=== PATIENT | female | born 1975 | race Caucasian/White ===

== ENCOUNTER 2020-01-26 10:21 | Outpatient (CLI) | payer OTHER, MEDICAID ==
[2020-01-26 11:09] LABS: BASOPHILS # (AUTO) 0.04 x10^3/uL (0-0.1); BASOPHILS % (AUTO) 1 % (0-1); EOSINOPHILS # (AUTO) 0.11 x10^3/uL (0-0.4); EOSINOPHILS % (AUTO) 1 % (1-7); LYMPHOCYTES # (AUTO) 2.09 x10^3/uL (1-3.4); LYMPHOCYTES % (AUTO) 28 % (22-44); MD NO; MEAN CORPUSCULAR HEMOGLOBIN 31.4 pg (27.0-34.8); MEAN CORPUSCULAR HGB CONC 33.6 g/dL (32.4-35.8); MEAN PLATELET VOLUME 9.9 fL (7.4-10.4); MONOCYTES # (AUTO) 0.37 x10^3/uL (0.2-0.8); MONOCYTES % (AUTO) 5 % (2-9); NEUTROPHILS # (AUTO) 4.92 x10^3/uL (1.8-6.8); NEUTROPHILS % (AUTO) 65 % (42-75); PLATELET COUNT 205 x10^3/uL (130-400); RED BLOOD COUNT 4.98 x10^6/uL (3.82-5.3); RED CELL DISTRIBUTION WIDTH 13.3 % (9.6-15.2)
[2020-01-26 11:15] LABS: MICROSCOPIC NOT IND
[2020-01-26 11:18] LABS: INTERNATIONAL NORMALIZED RATIO 0.94 (0.93-1.1)
[2020-01-26 11:19] LABS: ANION GAP 5 mmol/L (5-15); CALCIUM 9.4 mg/dL (8.5-10.1); CHLORIDE 110 mmol/L (98-107); CREATININE 0.83 mg/dL (0.55-1.02)
[2020-01-26] MEDS ORDERED: LACT1CAP35 PO (11:51)
[2020-01-26] MEDS ORDERED: CALC200T3 PO (11:51)
[2020-01-26] MEDS ORDERED: ACET325T14 PO (11:51)
[2020-01-26] MEDS ORDERED: DICL100G29 TP (11:51)
[2020-01-26] MEDS ORDERED: CYCL-259 PO (11:51)
== END 2020-01-26 23:59 | disposition home or self-care (01) ==
LOC: STAR 10:21
PROVIDERS: ATTEND Neurological Surgery
DX: Z01.818 Encounter for other preprocedural examination (principal); Z01.812 Encounter for preprocedural laboratory examination; Z01.811 Encounter for preprocedural respiratory examination; M50.31 Other cervical disc degeneration, high cervical region; M50.121 Cervical disc disorder at C4-C5 level with radiculopathy; R94.31 Abnormal electrocardiogram [ECG] [EKG]; R79.1 Abnormal coagulation profile; R82.90 Unspecified abnormal findings in urine; M48.02 Spinal stenosis, cervical region
CPT/HCPCS: 36415; 71046; 72050; 80048; 81003; 85025; 85610; 85730; 93005

== ENCOUNTER 2020-02-01 08:45 | Outpatient (CLI) | payer OTHER, MEDICAID ==
[~2020-02-01 08:45] MED LIST: ACET325T14 PO; CALC200T3 PO; CYCL-259 PO; DICL100G29 TP; LACT1CAP35 PO
== END 2020-02-01 23:59 | disposition home or self-care (01) ==
LOC: STAR 08:45
PROVIDERS: ATTEND Neurological Surgery
DX: Z02.9 Encounter for administrative examinations, unspecified (principal)

== ENCOUNTER 2020-02-05 05:19 | Inpatient (IN) | payer OTHER, MEDICAID ==
[2020-02-03 09:21] LABS: ANION GAP 3 mmol/L (5-15); CALCIUM 8.3 mg/dL (8.5-10.1); CHLORIDE 111 mmol/L (98-107)
[~2020-02-05] VITALS: Ht 162.6 cm; Wt 115.0 kg
[2020-02-05] MEDS ORDERED: LACTATED RINGERS 1,000 ML IV SCH (06:04)
[2020-02-05 06:08] VITALS: BP 138/85
[2020-02-05] MEDS ORDERED: BACITRACIN 50,000 UNIT ONE (06:13)
[2020-02-05] MEDS ORDERED: [UNRECOGNIZED DRUG - CODE] PO (06:13)
[2020-02-05] MEDS ORDERED: BUPIVACAINE/PF-EPI 0.5% 1:200K ONE (06:13)
[2020-02-05] MEDS ORDERED: CHLORHEXIDINE 15 ML UDC MM ONE (06:30)
[2020-02-05] MEDS ORDERED: PROPOFOL 50 ML ONE ×3 (06:49→08:05)
[2020-02-05] MEDS ORDERED: PROPOFOL 10 MG/ML, 20ML ONE (06:50)
[2020-02-05] MEDS ORDERED: MIDAZOLAM 1 MG/ML, 2ML ONE (06:50)
[2020-02-05] MEDS ORDERED: FENTANYL PF 250 MCG/5ML ONE (06:50)
[2020-02-05] MEDS ORDERED: DEXAMETHASONE 4 MG/ML, 1ML ONE ×2 (06:50)
[2020-02-05] MEDS ORDERED: CEFAZOLIN 1,000 MG ONE ×2 (06:50)
[2020-02-05] MEDS ORDERED: LIDOCAINE-MPF 2% ,5ML ONE (06:50)
[2020-02-05] MEDS ORDERED: ROCURONIUM 10MG/ML,5ML ONE (06:50)
[2020-02-05] MEDS ORDERED: SUCCINYLCHOLINE 20 MG/ML, 10ML ONE (06:50)
[2020-02-05] MEDS ORDERED: ONDANSETRON 2MG/ML, 2ML ONE (06:50)
[2020-02-05] MEDS ORDERED: ACETAMINOPHEN 500 MG TABLET PO ONE (07:00)
[2020-02-05] MEDS ORDERED: GABAPENTIN 300 MG CAPSULE PO ONE (07:00)
[2020-02-05] MEDS ORDERED: SCOPOLAMINE 1MG PATCH TD SCH (07:00)
[2020-02-05] MEDS ORDERED: LIDOCAINE 4%, 4 ML SYR/CANN TP ONE (07:03)
[2020-02-05] MEDS ORDERED: HYDROcodone/APAP 5/325 TABLET PO PRN (09:00)
[2020-02-05] MEDS ORDERED: PHARMACY MAY ADJ FOR RENAL FX MC PRN (09:00)
[2020-02-05] MEDS: SODIUM CHLORIDE FLUSH 10ML SYR IVF SCH ×2 (09:00→20:59)
[2020-02-05] MEDS: LACTOBACILLUS CHEW TABLET PO SCH ×3 (09:00→15:15)
[2020-02-05] MEDS ORDERED: OXYcodone/APAP 5/325MG TABLET PO PRN (09:00)
[2020-02-05] MEDS ORDERED: LABETALOL 5MG/ML, 20ML IVPush PRN (09:00)
[2020-02-05] MEDS ORDERED: DIPHENHYDRAMINE 50 MG/ML, 1ML IVPush PRN ×2 (09:00→09:30)
[2020-02-05] MEDS ORDERED: CALCIUM CARBONATE 500 MG TAB.CHEW PO PRN (09:00)
[2020-02-05] MEDS ORDERED: MAGNESIUM HYDROXIDE 8%, 30ML UDC PO PRN (09:00)
[2020-02-05] MEDS ORDERED: ONDANSETRON 2MG/ML, 2ML IVPush PRN ×2 (09:00→09:30)
[2020-02-05] MEDS: CYCLOBENZAPRINE 10 MG TABLET PO SCH ×3 (09:00→23:04)
[2020-02-05] MEDS ORDERED: SENNA/DOCUSATE TABLET PO PRN (09:00)
[2020-02-05] MEDS ORDERED: METHOCARBAMOL 750 MG TABLET PO PRN (09:00)
[2020-02-05] MEDS ORDERED: morphine SULFATE 10 MG/ML, 1ML IVPush PRN (09:00)
[2020-02-05] MEDS ORDERED: PROMETHAZINE 25 MG/ML, 1ML IM PRN (09:00)
[2020-02-05] MEDS: FENTANYL PF 100 MCG/2ML IV PRN ×4 (09:15→10:15)
[2020-02-05] MEDS ORDERED: FENTANYL PF 100 MCG/2ML ONE ×2 (09:15→09:26)
[2020-02-05] MEDS ORDERED: OXYcodone 5 MG/5 ML ORAL.SOL UDC ONE (09:26)
[2020-02-05] MEDS ORDERED: MEPERIDINE/PF 25MG/0.5ML IVPush PRN (09:30)
[2020-02-05] MEDS ORDERED: HYDROmorphone 1 MG/ML, 1ML INJ IVPush PRN (09:30)
[2020-02-05] MEDS ORDERED: OXYcodone 5 MG/5 ML ORAL.SOL UDC PO PRN (09:30)
[2020-02-05] MEDS ORDERED: METHOCARBAMOL 1,000 MG in DEXTROSE 5% 100 ML IV PRN (09:30)
[2020-02-05] MEDS ORDERED: DIAZEPAM 5 MG/ML, 2ML IVPush PRN (09:30)
[2020-02-05 14:40] VITALS: BP 135/86
[2020-02-05] MEDS: D5%-0.9% NACL+KCL 20MEQ 1,000 ML IV SCH (14:56)
[2020-02-05] MEDS: CEFAZOLIN PMX 1GM/50ML 50 ML IVPB SCH ×2 (15:15→23:06)
[2020-02-05] MEDS: HYDROcodone/APAP 10/325 MG TABLET PO PRN ×2 (15:24→19:22)
[2020-02-05 19:54] VITALS: BP 108/72
[2020-02-06 00:39] VITALS: BP 122/79
[2020-02-06] MEDS: HYDROcodone/APAP 10/325 MG TABLET PO PRN ×2 (01:10→07:21)
[2020-02-06] MEDS: D5%-0.9% NACL+KCL 20MEQ 1,000 ML IV SCH (01:51)
[2020-02-06 05:10] VITALS: BP 101/65
[2020-02-06 07:00] VITALS: BP 111/69
[2020-02-06] MEDS: CYCLOBENZAPRINE 10 MG TABLET PO SCH (07:21)
[2020-02-06] MEDS: LACTOBACILLUS CHEW TABLET PO SCH (07:21)
[2020-02-06] MEDS: SODIUM CHLORIDE FLUSH 10ML SYR IVF SCH (07:22)
[2020-02-06] MEDS ORDERED: CEPH-368 PO (09:52)
[2020-02-06] MEDS ORDERED: HYDR-3240 PO (09:52)
== END 2020-02-06 11:14 | disposition home or self-care (01) | DRG 473 ==
LOC: ORIP 05:19 → 4NE 14:37 → DCLOUNGE 02-06 11:02
PROVIDERS: ADMIT Neurological Surgery; ATTEND Neurological Surgery
PROC: 0RG10A0 Fusion of Cervical Vertebral Joint with Interbody Fusion Device, Anterior Approach, Anterior Column, Open Approach (ICD-10-PCS; 2020-02-05)
PROC: 0RG1070 Fusion of Cervical Vertebral Joint with Autologous Tissue Substitute, Anterior Approach, Anterior Column, Open Approach (ICD-10-PCS; 2020-02-05)
PROC: 4A11X4G Monitoring of Peripheral Nervous Electrical Activity, Intraoperative, External Approach (ICD-10-PCS; 2020-02-05)
PROC: 0RB30ZZ Excision of Cervical Vertebral Disc, Open Approach (ICD-10-PCS; principal; 2020-02-05 07:00)
DX: M50.121 Cervical disc disorder at C4-C5 level with radiculopathy (principal); M43.12 Spondylolisthesis, cervical region; M53.2X2 Spinal instabilities, cervical region; Z91.013 Allergy to seafood
CPT/HCPCS: 36415; 72040; J3490; 80048; 82962; 87635; G0378; J0690; J1100; J2250; J2405; J2704; J3010; J0330; J2800; J3480; J7120